=== PATIENT | male | born 2000 | race Hispanic/Latino ===

== ENCOUNTER 2025-02-04 10:00 | Emergency (ER) | payer OTHER ==
[~2025-02-04] VITALS: Ht 175.3 cm; Wt 195.0 kg
[2025-02-04 10:00] VITALS: PULSE 91; RESP 20; TEMP 97.8; O2SAT 97
== END 2025-02-04 10:48 | disposition home or self-care (01) ==
LOC: ER 10:16
DX: R05.9 Cough, unspecified (principal); J40 Bronchitis, not specified as acute or chronic; F12.10 Cannabis abuse, uncomplicated; E11.9 Type 2 diabetes mellitus without complications; F41.9 Anxiety disorder, unspecified; F32.A Depression, unspecified; F17.210 Nicotine dependence, cigarettes, uncomplicated
CPT/HCPCS: 99283